=== PATIENT | male | born 1980 | race African-American/Black ===

== ENCOUNTER 2025-03-20 08:08 | Day surgery (SDC) | payer OTHER ==
[2025-03-17 09:27] VITALS: BMI 33.5
[2025-03-20] MEDS ORDERED: Bupivacaine/Epinephrine 0.25% 30 ML VIAL ONE (10:31)
[2025-03-20] MEDS ORDERED: Lidocaine 2% MPF 10 ML AMP (For Epidural Use) ONE (10:31)
[2025-03-20] MEDS ORDERED: PROPOFOL 20 ML ONE ×2 (10:47→12:02)
[2025-03-20] MEDS ORDERED: Lidocaine 1% PF 5 ML VIAL ONE (10:48)
[2025-03-20] MEDS ORDERED: CEFAZOLIN 2 GM VIAL ONE (11:40)
[2025-03-20] MEDS ORDERED: Ondansetron PF 4 MG/2 ML Vial ONE (11:54)
== END 2025-03-20 13:45 | disposition home or self-care (01) ==
LOC: CSHSDC 08:08
PROVIDERS: ATTEND Surgery
PROC: 07B50ZZ Excision of Right Axillary Lymphatic, Open Approach (ICD-10-PCS; principal; 2025-03-20)
DX: R59.0 Localized enlarged lymph nodes (principal); F17.200 Nicotine dependence, unspecified, uncomplicated; F12.90 Cannabis use, unspecified, uncomplicated; Z86.73 Personal history of transient ischemic attack (TIA), and cerebral infarction without residual deficits
CPT/HCPCS: 88184; 88305; 88341; 88342; 88365; J2405; J2704; J3010